=== PATIENT | female | born 2000 | race Caucasian/White ===

== ENCOUNTER 2020-08-26 01:28 | Outpatient (CLI) | payer OTHER, SELFPAY ==
[2020-08-27 14:16] LABS: SARS-CoV-2 RNA PCR Negative
== END 2020-08-26 01:29 | disposition home or self-care (01) ==
LOC: ANHCOVIDDT 01:28
PROVIDERS: Visit Provider Internal Medicine Gastroenterology
DX: Z01.818 Encounter for other preprocedural examination (principal); Z20.828 Contact with and (suspected) exposure to other viral communicable diseases
CPT/HCPCS: 87635; C9803; U0003

== ENCOUNTER 2020-08-29 01:03 | Day surgery (SDC) | payer OTHER, SELFPAY ==
[2020-08-23 11:14] VITALS: BMI 21.7
--- NOTE | 2020-08-29 10:26 | WPDANESEPPF ---
Anes - Initial Pre Proc Eval Procedure: Operation Date: 08/29/20 11:15 Proposed Procedures p Esophagogastroduodenoscopy - Marco Antonio Pedro MD Date/Time: 08/29/20 10:26 Surgeon: Marco Antonio Pedor MD Pre Op Diagnosis: Epigastric Pain Patient Data Age: 20 Gender: F Height: 5 ft 1 in Weight: 52 kg Allergies Allergy/AdvReac Type Severity Reaction Status Date / Time No Known Allergies Allergy Verified 08/29/20 10:39 Home Medications Medication Instructions Recorded Confirmed Type dupilumab 300 mg/2 mL subcutaneous 300 mg SUB-Q [id number] 06/15/20 08/23/20 History pen injector norethindrone acetate 1.5 1 tablet PO DAILY 06/15/20 08/23/20 History mg-ethinyl estradiol 30 mcg tablet umiuyhtcfnla-ulf-mzeg-FA-vit K 1 tablet PO DAILY 08/23/20 08/23/20 History [Adults Multivitamin] Patient hx anesthesia problems: none Family hx anesthesia problems: none PMFSH Past Medical History Medical History (Updated 08/29/20 @ 10:38 by Karri Villanueva MD) Epigastric pain GERD (gastroesophageal reflux disease) Surgical History Surgical History [place] teeth removed Family History Family History Father Hypertension Mother Hypertension Interstitial cystitis Sjogren's syndrome Arthritis Grandparent Diabetes mellitus Grandparent Lung cancer Social History Social History (Updated 06/15/20 @ 15:17 by Beba Evans) Smoking status: Never smoker Alcohol intake: never Substance use: never Substance use type: does not use Living arrangements: with family Spiritual care concerns: No Anes - Eval Final PreProcedure Day of Procedure 08/29/20 10:26 Patient weight: normal Heart: regular rate and rhythm Lungs: clear to auscultation Airway: Mallampati scale class II Neurological: alert and oriented Last oral intake: >/= 8 hours ASA classification: II Emergent: no Anesthetic plan: proceed Anesthesia type and monitoring: general GIVS and standard monitoring Informed Consent: The patient's anesthetic plan and its attendant risks and benefits were discussed with the patient/family/POA. Questions were solicited and answers provided to the satisfaction of the patient/family/POA.
[2020-08-29] MEDS: LACTATED RINGERS 1,000 ML 150 ML IV CONT (10:38)
[2020-08-29 10:42] VITALS: BP 123/68; PULSE 78; RESP 20; TEMP 36.3; O2SAT 100; BMI 21.8
[2020-08-29 11:13] LABS: Beta HCG Quantitative < 2.39 mIU/ML
--- NOTE | 2020-08-29 11:16 | PM.HPGS ---
History of Present Illness History of Present Illness Consent: Risks, benefits, and alternatives have been discussed and questions answered. Patient agrees to proceed with procedure. Chief complaint: Epigastric Pain Narrative: Natalie Wiggins is a 20 year old female with intermittent epigastric pain, trial of omeprazole did not do much. Review of Systems Constitutional: Constitutional: Denies headache(s) and Denies weakness Eyes: Eyes: Denies blurry vision ENT: Reports Normal hearing present, Denies headache(s) and Denies neck pain Cardiovascular: Cardiovascular: Denies chest pain and Denies dyspnea Respiratory: Respiratory: Denies dyspnea Gastrointestinal: Gastrointestinal: Reports no additional gastrointestinal complaints Genitourinary: Genitourinary: Denies dysuria Musculoskeletal: Musculoskeletal: Denies neck pain Integumentary/Breasts: Skin/Breast: Denies dry skin Neurologic: Reports Normal hearing present, Denies headache(s) and Denies weakness Psychiatric: Psychiatric: Denies anxiety Endocrine: Endocrine: Denies change in body appearance Hematologic/Lymphatic: Hematologic/Lymphatic: Denies easy bleeding Allergic/Immunologic: Allergic/Immunologic: Denies urticaria PMFSH Past Medical History Medical History (Updated 08/29/20 @ 10:38 by Karri Villanueva MD) Epigastric pain GERD (gastroesophageal reflux disease) Surgical History Surgical History [place] teeth removed Family History Family History Father Hypertension Mother Hypertension Interstitial cystitis Sjogren's syndrome Arthritis Grandparent Diabetes mellitus Grandparent Lung cancer Social History Social History (Updated 06/15/20 @ 15:17 by Beba Evans) Smoking status: Never smoker Alcohol intake: never Substance use: never Substance use type: does not use Living arrangements: with family Spiritual care concerns: No Meds Home Medications and Allergies Home Medications Medication Instructions Recorded Confirmed Type dupilumab 300 mg/2 mL subcutaneous 300 mg SUB-Q [id number] 06/15/20 08/23/20 History pen injector norethindrone acetate 1.5 1 tablet PO DAILY 06/15/20 08/23/20 History mg-ethinyl estradiol 30 mcg tablet snhvbiavmtet-wts-rcie-FA-vit K 1 tablet PO DAILY 08/23/20 08/23/20 History [Adults Multivitamin] Allergies Allergy/AdvReac Type Severity Reaction Status Date / Time No Known Allergies Allergy Verified 08/29/20 10:39 Vital Signs Vital Signs - 24 hr 08/29/20 10:42 Temperature 97.3 F L Pulse Rate 78 Respiratory Rate 20 Blood Pressure 123/68 Pulse Oximetry 100 Exam Const: General: comfortable and no acute distress HENMT: General nose exam: Normal nares present Eyes: General: appearance normal, both eyes and all related structures Neck: Neck: no JVD Resp: Auscultation: clear to auscultation bilaterally Cardio: Rate: regular rate Rhythm: regular rhythm GI: Inspection: non-distended GI Palp: Yes Soft to palpation Skin: General skin exam: normal color Neuro: General: gait normal Speech: normal speech Extrem: General: normal to inspection Psych: Mental Status: mental status grossly normal Assessment and Plan Assessment and plan (1) Epigastric pain: Code(s): R10.13 - Epigastric pain Status: Acute Assessment and Plan: egd with bx
[2020-08-29 11:32] VITALS: BP 112/53; PULSE 69; RESP 22; O2SAT 98
[2020-08-29 11:42] VITALS: BP 106/61; PULSE 63; RESP 21; O2SAT 99
[2020-08-29 11:52] VITALS: BP 104/67; PULSE 59; RESP 18; O2SAT 99
== END 2020-08-29 12:06 | disposition home or self-care (01) ==
PROVIDERS: Anesthesiology; Visit Provider Internal Medicine Gastroenterology
PROC: 0DJ08ZZ Inspection of Upper Intestinal Tract, Via Natural or Artificial Opening Endoscopic (ICD-10-PCS; CPT 43235; principal; 2020-08-29 11:15)
DX: K29.50 Unspecified chronic gastritis without bleeding (principal); K25.9 Gastric ulcer, unspecified as acute or chronic, without hemorrhage or perforation; K21.9 Gastro-esophageal reflux disease without esophagitis
CPT/HCPCS: 43239; 36415; 84702; 87081; 88305; 88312; J2704; J7120

== ENCOUNTER 2020-09-03 14:37 | Emergency (ER) | payer OTHER, SELFPAY ==
--- NOTE | ~2020-09-03 | CT_ITS ---
EXAMINATION: CT abdomen pelvis wo con DATE: 09/03/2020 16:48 INDICATION: Left flank pain. TECHNIQUE: Computed tomography (CT) of the abdomen and pelvis was performed without intravenous contr ast. Automated exposure control and iterative reconstruction technique were employed. The dose-length product was 187.62 mGy-cm. COMPARISON: None. FINDINGS: The visualized portions of the lung bases demonstrate mild atelectasis. No pleural effusion . The heart size is normal. No pericardial effusion. The liver, gallbladder, spleen, pancreas, adrena l glands, and right kidney are normal. There is a 2 mm stone in left kidney. There are no dilated loo ps of bowel. There are appendicoliths in the appendix, which is normal in size in its visible portion . There is trace pelvic ascites. There are no pathologically enlarged lymph nodes. The bones are unre markable. IMPRESSION: 1. 2 mm nonobstructing left kidney stone. Reviewed, dictated and finalized at location A. 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
--- NOTE | ~2020-09-03 | XR_ITS ---
EXAMINATION: XR abdomen/kub 1V DATE: 09/03/2020 16:00 INDICATION: Left abdominal pain. Constipation. TECHNIQUE: A supine view of the abdomen on 2 radiographs was obtained. COMPARISON: None. FINDINGS: There are no dilated loops of bowel. There is a moderate volume of stool in the colon. IMPRESSION: 1. Moderate volume of stool in the colon. Reviewed, dictated and finalized at location A. 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
[2020-09-03 14:48] VITALS: BP 131/88; PULSE 84; RESP 20; TEMP 36.7; O2SAT 100
[2020-09-03 15:01] LABS: Basophils Percent Auto 0.3 % (0.2-1.2); Eosinophils Absolute Auto 0.1 K/mm3 (0-0.3); Eosinophils Percent Auto 1.1 % (0-4.4); Hemoglobin 12.4 g/dL (12.0-15.0); Immature Granulocyte Absolute 0.03 K/mm3 (0.00-0.031); Immature Granulocyte Percent A 0.4 % (0-0.5); Lymphocytes Absolute Auto 1.18 K/mm3 (0.9-3.2); Lymphocytes Percent Auto 16.5 % (18.3-44.2); Mean Corpuscular HGB Conc 32.6 g/dl (32-36); Mean Corpuscular Hemoglobin 29.1 pg (26-34); Mean Corpuscular Volume 89.2 fl (80-100); Mean Platelet Volume 10.5 fl (7.4-10.4); Monocytes Absolute Auto 0.4 K/mm3 (0.1-0.6); Monocytes Percent Auto 5.6 % (2.6-8.5); Neutrophils Absolute Auto 5.4 K/mm3 (1.3-6.7); Neutrophils Percent Auto 76.1 % (45.5-73.1); Platelet Count Result 241 k/mm3 (150-375); Red Blood Count 4.26 M/mm3 (4.2-5.4); Red Cell Distribution Width 12.2 % (11.5-14.5); White Blood Count 7.1 K/mm3 (4.5-10.0)
[2020-09-03 15:04] LABS: Add Urine Microscopic? YES; Appearance Urine Cloudy (Clear); Bacteria Urine Trace /hpf; Bilirubin Urine Negative (Negative); Blood Urine Negative (Negative); Color Urine Yellow (Yellow); Glucose Urine UA Negative (Negative); Ketones Urine Negative (Negative); Leukocyte Esterase Ur Negative LEU/UL (Negative); Mucus Urine Rare /lpf; Nitrate Urine Negative (Negative); Protein Urine Negative (Negative); RBC Urine 0-2 /hpf (0-2); Specific Grav Ur 1.013 (1.001-1.035); Squamous Epithelial Cell Urine Many /hpf (Few); Urobilinogen Urine Negative mg/dL (<2.0); WBC Urine 0-3 /hpf
[2020-09-03 15:12] LABS: Anion Gap 7 mmol/L (8-16); Blood Urea Nitrogen 13 mg/dL (7-17); Calcium 9.2 mg/dL (8.4-10.2); Carbon Dioxide 29 mmol/L (22-30); Chloride 101 mmol/L (98-107); Estimated CRCL calculation 82 ml/min; Estimated Glomerular Filt Rate > 60; Glucose 117 mg/dL (65-105); Potassium 4.3 mmol/L (3.4-5.0); Sodium 137 mmol/L (137-145)
--- NOTE | 2020-09-03 15:40 | ED.BACK ---
HPI - Back Pain/Injury General Chief Complaint: Back Pain/Injury Stated Complaint: left flank pain Time Seen by Provider: 09/03/20 15:40 History of Present Illness HPI Narrative: 20 yo female w/ h/o PUD presents to the ED from home for left flank pain. She has had intermittent pain in the left mid back for a few days. It has begun to migrate around to the LLQ. It is worse with movmenet. SHe was recently diagnosed with gastric ulcer. She says that this pain is different. No hematurioa, dyusuria, fever. Related Data Home Medications Medication Instructions Recorded Confirmed dupilumab 300 mg/2 mL subcutaneous 300 mg SUB-Q [id number] 06/15/20 08/23/20 pen injector norethindrone acetate 1.5 1 tablet PO DAILY 06/15/20 08/23/20 mg-ethinyl estradiol 30 mcg tablet Allergies Allergy/AdvReac Type Severity Reaction Status Date / Time No Known Allergies Allergy Verified 09/03/20 14:50 Review of Systems Review of Systems: All systems reviewed & are unremarkable except as noted in HPI and below Constitutional: Constitutional: Denies chills and Denies fever(s) ENT: Denies sore throat Cardiovascular: Cardiovascular: Denies chest pain Respiratory: Respiratory: Denies dyspnea Gastrointestinal: Gastrointestinal: Reports abdominal pain, Denies diarrhea, Denies nausea and Denies vomiting Genitourinary: Genitourinary: Denies hematuria, Denies nocturia and Denies dysuria Musculoskeletal: Musculoskeletal: Reports back pain Neurologic: Denies numbness and Denies weakness PMF Past Medical History Medical History Epigastric pain Gastric ulcer GERD (gastroesophageal reflux disease) Surgical History Surgical History [place] teeth removed Family History Family History Father Hypertension Mother Hypertension Interstitial cystitis Sjogren's syndrome Arthritis Grandparent Diabetes mellitus Grandparent Lung cancer Social History Social History Smoking status: Never smoker Alcohol intake: never Substance use: never Substance use type: does not use Gender identity (if verbalized by the patient): Female Spiritual care concerns: No Exam Const: General: healthy appearing, no acute distress and alert Orientation/consciousness: patient oriented x3 HENMT: Head: normal to inspection Neck: Neck: normal visual inspection and no lymphadenopathy Chest: Chest palpation & inspection: no tenderness Resp: Effort & Inspection: normal respiratory effort Auscultation: clear to auscultation bilaterally, no rales, no rhonchi and no wheezes Cardio: Jugular venous distension: no JVD Rate: regular rate Rhythm: regular rhythm Heart sounds: no murmurs GI: Inspection: non-distended GI Palp: Yes Soft to palpation and Yes Tenderness to palpation present (GI) (left lower costal margin) Skin: General skin exam: normal color Neuro: General: patient oriented x3 and moves all extremities Speech: normal speech Extrem: General: no edema Psych: Appearance: well kempt Affect: normal affect Course Vital Signs Vital signs: Vital Signs Temperature 36.7 C 09/03/20 14:48 Pulse Rate 84 09/03/20 14:48 Respiratory Rate 20 09/03/20 14:48 Blood Pressure 131/88 09/03/20 14:48 Pulse Oximetry 100 09/03/20 14:48 Temperature 36.7 C 09/03/20 14:48 Pulse Rate 74 09/03/20 16:09 Respiratory Rate 20 09/03/20 16:09 Blood Pressure 124/65 09/03/20 16:09 Pulse Oximetry 98 09/03/20 16:09 MDM - Back Pain/Injury MDM Narrative Medical decision making narrative: Imaging shows moderate gas and stool. She also has a nonobstructing left kidney stone unlikely to be responsible for her pain. Medical Records Attestation: I reviewed the patient's me
[2020-09-03] MEDS: DICYCLOMINE HCL INJ 20 MG/2 ML VIAL IM (16:03)
[2020-09-03] MEDS: PANTOPRAZOLE SODIUM IV 40 MG VIAL IV PUSH (16:04)
[2020-09-03 16:09] VITALS: BP 124/65; PULSE 74; RESP 20; O2SAT 98
[2020-09-03] MEDS: SIMETHICONE 80 MG TAB.CHEW PO (17:12)
[2020-09-03 17:37] VITALS: BP 114/59; PULSE 72; RESP 18; O2SAT 99
== END 2020-09-03 17:40 | disposition home or self-care (01) ==
PROVIDERS: Emergency Medicine; Emergency Provider Emergency Medicine
DX: R10.9 Unspecified abdominal pain (principal); K21.9 Gastro-esophageal reflux disease without esophagitis; Z87.11 Personal history of peptic ulcer disease; N20.0 Calculus of kidney
CPT/HCPCS: 36415; 74018; 74176; 80048; 81001; 81025; 85025; 96372; 96374; 99284; A9270; C9113; J0500

== ENCOUNTER 2020-10-16 00:45 | Outpatient (CLI) | payer OTHER, SELFPAY ==
[2020-10-16 19:06] LABS: SARS-CoV-2 RNA PCR Positive
== END 2020-10-16 00:46 | disposition home or self-care (01) ==
LOC: ANHCOVIDDT 00:46
PROVIDERS: Visit Provider Internal Medicine Gastroenterology
DX: U07.1 COVID-19 (principal)
CPT/HCPCS: C9803; U0003

== ENCOUNTER 2021-01-09 01:05 | Day surgery (SDC) | payer OTHER, SELFPAY ==
[2020-10-12 12:51] VITALS: BMI 22.1
--- NOTE | 2020-10-18 08:42 | SUR.PREOP ---
Patient denies any symptoms except sinus congestion. Stated that the health department has already talked to her. No questions at this time.
[2021-01-03 10:34] VITALS: BMI 21.7
[2021-01-09 12:55] VITALS: BP 129/73; PULSE 69; RESP 18; TEMP 36.5; O2SAT 100; BMI 21.8
--- NOTE | 2021-01-09 13:05 | WPDANESEPPF ---
Anes - Initial Pre Proc Eval Procedure: Operation Date: 01/09/21 13:00 Proposed Procedures p Colonoscopy - Marco Antonio Pedro MD Date/Time: 01/09/21 13:05 Surgeon: Marco Antonio Pedro MD Pre Op Diagnosis: Gastritis Patient Data Age: 20 Gender: F Height: 5 ft 1 in Weight: 52.4 kg Last Vital Signs Temp 97.7 F 01/09/21 12:55 Pulse 69 01/09/21 12:55 Resp 18 01/09/21 12:55 BP 129/73 01/09/21 12:55 Pulse Ox 100 01/09/21 12:55 Allergies Allergy/AdvReac Type Severity Reaction Status Date / Time No Known Allergies Allergy Verified 01/09/21 12:50 Home Medications Medication Instructions Recorded Confirmed Type dupilumab 300 mg/2 mL subcutaneous 300 mg SUB-Q [id number] 06/15/20 10/12/20 History pen injector norethindrone acetate 1.5 1 tablet PO DAILY 06/15/20 10/12/20 History mg-ethinyl estradiol 30 mcg tablet pantoprazole 40 mg tablet,delayed 40 mg PO QAM #30 tablet 09/07/20 10/12/20 Rx release sodium,potassium,mag sulfates 17.5 See Rx Instructions PO .COMPLEX 10/12/20 Rx gram-3.13 gram-1.6 gram oral soln #354 ml Patient hx anesthesia problems: none Family hx anesthesia problems: none PMFSH Past Medical History Medical History (Updated 09/07/20 @ 11:32 by Marco Antonio Pedro MD) Epigastric pain Gastric ulcer GERD (gastroesophageal reflux disease) Granulomatous gastritis Left flank pain Surgical History Surgical History [place] teeth removed Family History Family History Father Hypertension Mother Hypertension Interstitial cystitis Sjogren's syndrome Arthritis Grandparent Diabetes mellitus Grandparent Lung cancer Social History Social History Smoking status: Never smoker Alcohol intake: never Substance use: never Substance use type: does not use Living arrangements: with family Gender identity (if verbalized by the patient): Female Spiritual care concerns: No Anes - Eval Final PreProcedure Day of Procedure 01/09/21 13:05 Patient weight: normal Heart: regular rate and rhythm Lungs: clear to auscultation Airway: Mallampati scale class II Neurological: alert and oriented Last oral intake: >/= 8 hours ASA classification: II Emergent: no Anesthetic plan: proceed Anesthesia type and monitoring: general GIVS and standard monitoring Informed Consent: The patient's anesthetic plan and its attendant risks and benefits were discussed with the patient/family/POA. Questions were solicited and answers provided to the satisfaction of the patient/family/POA.
[2021-01-09] MEDS: LACTATED RINGERS 1,000 ML 150 ML IV CONT (13:07)
--- NOTE | 2021-01-09 13:47 | PM.HPGS ---
History of Present Illness History of Present Illness Consent: Risks, benefits, and alternatives have been discussed and questions answered. Patient agrees to proceed with procedure. Chief complaint: Gastritis Narrative: Natalie Wiggins is a 20 year old female here for colonoscopy, had EGD that showed gastric ulcers/gastritis. Biopsy showed gastritis with focal granuloma (differential diagnosis includes infectious etiologies and Crohn's disease). Reports uncle with Crohns disease. She now reports left flank pain that radiates to lower abdomen and was seen in ER Friday. CT scan negative. Denies report alternation diarrhea and constipation. No changes since last visit. Review of Systems Constitutional: Constitutional: Denies headache(s) and Denies weakness Eyes: Eyes: Denies blurry vision ENT: Reports Normal hearing present, Denies headache(s) and Denies neck pain Cardiovascular: Cardiovascular: Denies chest pain and Denies dyspnea Respiratory: Respiratory: Denies dyspnea Gastrointestinal: Gastrointestinal: Reports no additional gastrointestinal complaints Genitourinary: Genitourinary: Denies dysuria Musculoskeletal: Musculoskeletal: Denies neck pain Integumentary/Breasts: Skin/Breast: Denies dry skin Neurologic: Reports Normal hearing present, Denies headache(s) and Denies weakness Psychiatric: Psychiatric: Denies anxiety Endocrine: Endocrine: Denies change in body appearance Hematologic/Lymphatic: Hematologic/Lymphatic: Denies easy bleeding Allergic/Immunologic: Allergic/Immunologic: Denies urticaria PMFSH Past Medical History Medical History (Updated 01/09/21 @ 13:48 by Marco Antonio Pedro MD) Bowel habit changes Epigastric pain Gastric ulcer GERD (gastroesophageal reflux disease) Granulomatous gastritis Left flank pain Surgical History Surgical History [place] teeth removed Family History Family History Father Hypertension Mother Hypertension Interstitial cystitis Sjogren's syndrome Arthritis Grandparent Diabetes mellitus Grandparent Lung cancer Social History Social History Smoking status: Never smoker Alcohol intake: never Substance use: never Substance use type: does not use Living arrangements: with family Gender identity (if verbalized by the patient): Female Spiritual care concerns: No Meds Home Medications and Allergies Home Medications Medication Instructions Recorded Confirmed Type dupilumab 300 mg/2 mL subcutaneous 300 mg SUB-Q [id number] 06/15/20 10/12/20 History pen injector norethindrone acetate 1.5 1 tablet PO DAILY 06/15/20 10/12/20 History mg-ethinyl estradiol 30 mcg tablet pantoprazole 40 mg tablet,delayed 40 mg PO QAM #30 tablet 09/07/20 10/12/20 Rx release sodium,potassium,mag sulfates 17.5 See Rx Instructions PO .COMPLEX 10/12/20 Rx gram-3.13 gram-1.6 gram oral soln #354 ml Allergies Allergy/AdvReac Type Severity Reaction Status Date / Time No Known Allergies Allergy Verified 01/09/21 12:50 Vital Signs Vital Signs - 24 hr 01/09/21 12:55 Temperature 97.7 F Pulse Rate 69 Respiratory Rate 18 Blood Pressure 129/73 Pulse Oximetry 100 Exam Const: General: comfortable and no acute distress HENMT: General nose exam: Normal nares present Eyes: General: appearance normal, both eyes and all related structures Neck: Neck: no JVD Resp: Auscultation: clear to auscultation bilaterally Cardio: Rate: regular rate Rhythm: regular rhythm GI: Inspection: non-distended GI Palp: Yes Soft to palpation Skin: General skin exam: normal color Neuro: General: gait normal Speech: normal speech Extrem: General: normal to inspection Psych: Mental Status: mental status grossly normal Assessment and Plan Assessment and plan (1) [place]
[2021-01-09 14:01] VITALS: BP 109/60; PULSE 69; RESP 18; O2SAT 100
[2021-01-09 14:11] VITALS: BP 93/42; PULSE 53; RESP 18; O2SAT 99
[2021-01-09 14:21] VITALS: BP 111/77; PULSE 60; RESP 18; O2SAT 100
== END 2021-01-09 14:36 | disposition home or self-care (01) ==
PROVIDERS: Visit Provider Internal Medicine Gastroenterology
PROC: 0DJD8ZZ Inspection of Lower Intestinal Tract, Via Natural or Artificial Opening Endoscopic (ICD-10-PCS; CPT 45378; principal; 2021-01-09 13:00)
DX: K52.9 Noninfective gastroenteritis and colitis, unspecified (principal); R10.12 Left upper quadrant pain; K21.9 Gastro-esophageal reflux disease without esophagitis; Z87.11 Personal history of peptic ulcer disease
CPT/HCPCS: 45380; 88305; J2704; J7120